=== PATIENT | female | born 1935 | race Asian ===

== ENCOUNTER 2018-07-14 13:47 | Emergency (ER) | payer MEDICARE, OTHER ==
[~2018-07-14] VITALS: Ht 157.5 cm; Wt 68.0 kg
[2018-07-14 13:50] VITALS: Ht 157.5 cm; Wt 68.0 kg
[2018-07-14] MEDS ORDERED: OLME1TAB27 PO (15:34)
[2018-07-14] MEDS ORDERED: LYR75 PO (15:34)
[2018-07-14] MEDS ORDERED: CLON0.2T5 PO (15:34)
[2018-07-14] MEDS ORDERED: TRAM50TA PO (15:35)
[2018-07-14] MEDS ORDERED: CELE200C PO (15:35)
[2018-07-14] MEDS ORDERED: ALBU18HF INHALATION (15:35)
[2018-07-14] MEDS ORDERED: ATOR40TA68 PO (15:36)
[2018-07-14] MEDS ORDERED: GUAI600T23 PO (15:37)
--- NOTE | 2018-07-14 18:18 | ERD ---
ER Documentation Chief Complaint Chief Complaint B/L LE EDEMA X 4 DAYS , SENT BY PMD FOR HTN HPI 82-year-old female history of hypertension and osteoporosis presents to the ED complaining of one-week history of worsening, uncontrolled hypertension. Denies chest pain, palpitations or shortness of breath. Denies PND, orthopnea and exertional dyspnea. Mild, chronic, lower extremity swelling to ankle and feet but no calf pain. No abdominal pain, nausea or vomiting. Patient admits to worsening anxiety since the recent of her son. No depression or thoughts of hurting herself. No URI symptoms, cough or hemoptysis. No fevers or chills. ROS All systems reviewed and are negative except as per history of present illness. Medications Home Meds Reported Medications Guaifenesin (Guaifenesin) 600 Mg Tablet.sa, 600 MG PO BID for 7 Days, TAB PER PT STARTED RX 07-12-18 07/14/18 Atorvastatin* (Atorvastatin*) 40 Mg Tablet, 40 MG PO QHS, #30 TAB 07/14/18 Celecoxib* (Celebrex*) 200 Mg Capsule, 200 MG PO DAILY, CAP 07/14/18 Tramadol Hcl* (Ultram*) 50 Mg Tablet, 50 MG PO Q6H PRN for PAIN, TAB 07/14/18 Albuterol Sulfate* (Ventolin HFA*) 18 Gm Hfa.aer.ad, 2 PUFF INHALATION Q4H PRN for WHEEZING AND SOB, #1 INHALER 07/14/18 Pregabalin* (Lyrica*) 75 Mg Capsule, 75 MG PO BID, CAP 07/14/18 Clonidine Hcl* (Clonidine Hcl*) 0.2 Mg Tablet, 0.2 MG PO BID, TAB 07/14/18 Olmesartan/Hydrochlorothiazide (Benicar Hct 40-25 mg Tablet) 1 Each Tablet, 1 EACH PO DAILY, TAB 07/14/18 Allergies Allergies: Coded Allergies: No Known Allergy (Unverified , 07/14/18) PMhx/Soc Reviewed in chart. As per HPI. Her son is a nurse here at [facility]. History of Surgery: No Anesthesia Reaction: No Hx Neurological Disorder: No Hx Respiratory Disorders: Yes (COPD) Hx Cardiac Disorders: Yes (Hypertension) Hx Psychiatric Problems: No Hx Miscellaneous Medical Probl: Yes (Hyperlipidemia) Hx Alcohol Use: No Hx Substance Use: No Hx Tobacco Use: Yes Smoking Status: Former smoker (Quit 6 months ago) FmHx No family history relevant to presenting complaint Physical Exam Vitals Vital Signs Date Temp Pulse Resp B/P (MAP) Pulse Ox O2 O2 Flow FiO2 Time Delivery Rate 07/14/18 71 15 154/68 96 Room Air 19:18 (96) 07/14/18 71 16 177/93 95 Room Air 18:31 (121) 07/14/18 78 14 190/96 94 Room Air 18:26 (127) 07/14/18 Nasal 2 17:09 Cannula 07/14/18 99.0 122 18 202/110 98 13:50 (140) Physical Exam Const: Alert, elderly, anxious in mild distress. Head: Atraumatic Eyes: Normal Conjunctiva ENT: Normal External Ears, Nose and Mouth. Neck: Full range of motion. No meningismus. No JVD. Resp: Breath sounds are equal and clear to auscultation bilaterally. No rales rhonchi or wheezes. Cardio: Regular rate and rhythm, no murmurs Abd: Soft, non tender, non distended. No masses or abnormal pulsations. Normal bowel sounds Skin: No petechiae or rashes Back: No midline or flank tenderness Ext: No cyanosis. 0-1+ pretibial edema. No calf swelling or tenderness. Neur: Awake and alert. No focal deficit. Psych: Anxious but not depressed. Result Diagram: 07/14/18 1534 07/14/18 1534 Results 24 hrs Laboratory Tests Test 07/14/18 15:34 White Blood Count 5.4 10^3/ul Red Blood Count 4.42 10^6/ul Hemoglobin 13.4 g/dl Hematocrit 40.6 % Mean Corpuscular Volume 91.9 fl Mean Corpuscular Hemoglobin 30.3 pg Mean Corpuscular Hemoglobin Concent 33.0 g/dl Red Cell Distribution Width 13.4 % Platelet Count 174 10^3/UL Mean Platelet Volume 9.5 fl Immature Granulocytes % 0.200 % Neutrophils % 65.1 % Lymphocytes % 23.7 % Monocytes % 8.0 % Eosinophils % 2.4 % Basophils % 0.6 % Nucleated Red Blood Cells % 0.0 /100WBC Immature Granulocytes # 0.010 10^3/ul Neutrophils # 3.5 10^3/ul Lymphocytes # 1.3 10^3/ul Monocytes # 0.4 10^3/ul Eosinophils # 0.1 10^3/ul Basophils # 0.0 10^3/ul Nucleated Red Blood Cells # 0.0 10^3/ul Sodium Level 134 mmol/L Potassium Level 4.0 mmol/L Chloride Level 98 mmol/L Carbon Dioxide Level 30 mmol/L Anion Gap 6 Blood Urea Nitrogen 14 mg/dl Creatinine 0.77 mg/dl Est Glomerular Filtrat Rate mL/min mL/min Glucose Level 108 mg/dl Calcium Level 9.8 mg/dl Troponin I < 0.012 ng/ml Procedures/MDM DOCUMENTS REVIEWED: ED nurse, prior records EKG: Time: Sinus tachycardia. Ventricular rate 118. Occasional PACs. Normal SD and QRS. No acute ST segment elevation or depression. My Interpretation IMAGING: PROCEDURE: One view chest radiograph. CLINICAL INDICATION: Hypertension, shortness of breath TECHNIQUE: An AP view of the chest was obtained. COMPARISON: None FINDINGS: Mediastinum: There is calcification of the wall of the thoracic aorta. Heart size: Normal Pulmonary vasculature: No visible engorgement. Lungs: Clear. Lung volumes are very low Costophrenic sulci: Clear. Bony structures: Calcification adjacent to the right greater tuberosity. Moderate osteoarthritis at the left glenohumeral joint. IMPRESSION: 1. Atherosclerosis of the thoracic aorta. 2. Expiratory phase senescent chest without visible pneumonia or congestive failure. 3. Chronic right supraspinatus calcific tendinopathy. 4. 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 RPTAT:AAJJ Physician Dayo Date Time Electronically viewed and signed by Physician Dayo on 07/14/2018 17:26 MEDICAL DECISION MAKIN-year-old female history of hypertension and osteoporosis presents to the ED complaining of one-week history of worsening, uncontrolled hypertension. CBC unremarkable for anemia, leukocytosis or thrombocytopenia. Chemistry reveals borderline hyponatremia but no other electrolyte abnormalities, renal insufficiency or hyperglycemia. Troponin is negative. Chest x-ray negative for congestive heart failure. No acute ischemic EKG changes or cardiac dysrhythmia. Patient with poorly controlled hypertension likely exacerbated by anxiety resolved without treatment. Repeat blood pressure at 19:20 was 158/68. No evidence of end organ damage, CHF or hypertensive emergency. No headache, focal deficit or indication for neuroimaging. Stable for discharge with precautionary instructions and outpatient follow-up as counseled. Counseled patient ans son regarding diagnostic workup, diagnosis and need for followup. Understands to return to ED if symptoms recur, worsen or any other concerns. Though the patient's latest blood pressure was elevated (>120/80), the patient has a known history of hypertension and urged to pursue adjustment of their medical therapy within a week with their primary care physician. Please refer to the medication reconciliation form for the current list of hypertensive medications. Departure Diagnosis: Primary Impression: Poorly-controlled hypertension Additional Impressions: Anxiety History of COPD Condition: Stable (Improved) KINGSLEY BERRY MD Jul 14, 2018 18:18
[2018-07-14 19:18] VITALS: BP 154/68; PULSE 71; RESP 15
== END 2018-07-14 19:45 | disposition home or self-care (01) ==
LOC: E/R 13:47
DX: I10 Essential (primary) hypertension (principal); F41.9 Anxiety disorder, unspecified; R40.2142 Coma scale, eyes open, spontaneous, at arrival to emergency department; R40.2252 Coma scale, best verbal response, oriented, at arrival to emergency department; R40.2362 Coma scale, best motor response, obeys commands, at arrival to emergency department; J44.9 Chronic obstructive pulmonary disease, unspecified; Z87.891 Personal history of nicotine dependence
CPT/HCPCS: 36415; 71045; 80048; 84484; 85025; 93005